=== PATIENT | male | born 1980 | race Caucasian/White ===

== ENCOUNTER 2016-08-16 15:57 | Emergency (ER) | payer MEDICAID ==
[~2016-08-16] VITALS: Ht 172.7 cm; Wt 108.9 kg
[~2016-08-16 15:57] MED LIST: ALBUTEROL SULF8.5 GM INH; CIPROFLOXACIN500 M2 ORAL; METRONIDAZOLE500 MG ORAL; NORCO 10/3251 EA ORAL
[2016-08-16 16:15] VITALS: BP 154/95
[2016-08-16] MEDS ORDERED: LORazepam 1mg tab ORAL ONE (17:00)
[2016-08-16] MEDS ORDERED: LIBRIUM25 MG ORAL (17:31)
[2016-08-16] MEDS ORDERED: ZOFRAN4 M3 ORAL (17:34)
[2016-08-16 17:39] VITALS: BP 164/100
--- NOTE | 2016-08-16 22:05 | Emergency Room Report ---
History of Present Illness General Chief Complaint: General Complaint Source: Patient Present Illness HPI The patient is a 35-year-old male presenting for possible alcohol withdrawal. The patient states that he has been heavily drinking over the past week and states he drinks 1 L of vodka daily but stopped yesterday. The patient states that he is now experiencing tremulous hands and nausea. The pt denies change in consciousness, dizziness, blurred vision, decreased balance, CP, SOB, diaphoresis, abd pain, hematochezia, melena, hematemesis Allergies: Coded Allergies: No Known Allergies (Unverified , 09/14/14) Patient History Past Medical History: see triage record Pertinent Family History: none Social History: Reports: alcohol use Reviewed Nursing Documentation: PMH: Agreed, PSxH: Agreed Nursing Documentation-PMH Hx Asthma: Yes Hx Gastrointestinal Problems: Yes - diverticulities Review of Systems All Other Systems: negative except mentioned in HPI Physical Exam Vital Signs Date Time Temp Pulse Resp B/P Pulse Ox O2 Delivery O2 Flow Rate FiO2 08/16/16 16:01 98.2 89 19 154/95 96 Room Air Sp02 EP Interpretation: reviewed, normal General Appearance: no apparent distress, alert, GCS 15, non-toxic Head: normocephalic, atraumatic Eyes: bilateral eye EOMI, bilateral eye PERRL, bilateral eye normal inspection ENT: hearing grossly normal, normal pharynx, no angioedema, normal voice Neck: full range of motion, supple/symm/no masses Respiratory: chest non-tender, lungs clear, normal breath sounds, no wheezing, speaking full sentences Cardiovascular #1: regular rate, rhythm, no edema, no murmur Gastrointestinal: normal bowel sounds, non tender, soft, non-distended, no guarding, no rebound Musculoskeletal: back normal, gait/station normal, normal range of motion, non- tender Neurologic: alert, oriented x3, responsive, motor strength/tone normal, sensory intact, normal gait, speech normal, other - slight tremor of bilat hands Psychiatric: judgement/insight normal, memory normal, mood/affect normal, no suicidal/homicidal ideation Reflexes: 3+ bicep (R), 3+ bicep (L), 3+ tricep (R), 3+ tricep (L), 3+ knee (R) , 3+ knee (L) Skin: normal color, no rash, warm/dry, well hydrated Lymphatic: no adenopathy Medical Decision Making PA Attestation Dr. Alfaro is my supervising physician. Patient management was discussed with my supervising physician Diagnostic Impression: Primary Impression: Alcohol use disorder ER Course The patient is a 35-year-old male presenting for possible alcohol withdrawal. DDx considered but not limited to: alcohol withdrawal, acute alcohol intoxication, hepatic encephalopathy, drug overdose, hypoglycemia, psychosis PE: afebrile. NAD. A&Ox3. PERRL. CN II-XII intact. Slight tremor of hands. Normal gait. RRR. No MRG. Lungs CTA bilat. Abd soft, non tender. The patient was given Ativan and Zofran and states that he is feeling better. Hand tremors have decreased. The patient will be discharged home with a prescription for Zofran and Librium. The patient will followup with primary care physician and is given information regarding cessation of drinking alcohol. ER precautions are given. Last Vital Signs Date Time Temp Pulse Resp B/P Pulse Ox O2 Delivery O2 Flow Rate FiO2 08/16/16 17:39 92 20 164/100 95 Room Air 08/16/16 16:15 98.2 Status: improved Disposition: HOME, SELF-CARE Condition: Improved Scripts Ondansetron* (ZOFRAN*) 4 Mg Tablet 4 MG ORAL Q6H Y for Nausea & Vomiting, #20 TAB Prov: ZONIA WILLIAMSON 08/16/16 Chlordiazepoxide (Chlordiazepoxide HCl) 25 Mg Capsule 50 MG ORAL Q6HR, #40 CAP 0 Refills Prov: ZONIA WILLIAMSON.Matilda 08/16/16 Patient Instructions: Alcohol Use Disorder, Alcohol Withdrawal Additional Instructions: I discussed my findings with the patient. All questions and concerns have been answered. Treatment and medication compliance have been addressed. I advised the patient that they need to follow up with PMD in 3-5 days. Return to ED if symptoms worsen, new symptoms arise, or if needed for any reason. Patient verbalized understanding of discharge instructions. Follow up with primary doctor as soon as possible. Patient agrees he will refrain from drinking alcohol. ZONIA WILLIAMSON Aug 16, 2016 22:05
== END 2016-08-16 17:41 | disposition home or self-care (01) ==
LOC: EMR 16:21
DX: F10.10 Alcohol abuse, uncomplicated (principal); J45.909 Unspecified asthma, uncomplicated; Z87.19 Personal history of other diseases of the digestive system
CPT/HCPCS: 99282

== ENCOUNTER 2016-10-22 15:53 | Emergency (ER) | payer MEDICAID ==
[~2016-10-22] VITALS: Ht 175.3 cm; Wt 104.3 kg
[~2016-10-22 15:53] MED LIST changes: +LIBRIUM25 MG ORAL; +ZOFRAN4 M3 ORAL
[2016-10-22] MEDS ORDERED: CHLORDIAZEPOXID25 MG PO (16:14)
[2016-10-22] MEDS ORDERED: LORazepam 1mg tab ORAL ONE (17:30)
[2016-10-22 17:57] VITALS: BP 162/90
[2016-10-22] MEDS ORDERED: ATIVAN0.5 MG ORAL (18:16)
[2016-10-22] MEDS ORDERED: PROAIR HFA8.5 GM INH (18:17)
[2016-10-22 18:24] VITALS: BP 162/71
--- NOTE | 2016-10-22 22:25 | Emergency Room Report ---
History of Present Illness General Chief Complaint: General Complaint Source: Patient Present Illness HPI The patient is a 36 from male presenting for possible alcohol withdrawal. The patient states that he stopped drinking tequila 3 days prior and has developed tremors.The patient states that he has gone to alcohol is drawn the past and this feels the same. he also admits to nausea but denies vomiting. The patient denies other symptoms including headache, shortness of breath, chest pain, dizziness, blurred vision, altered level of consciousness, fever, chills Allergies: Coded Allergies: No Known Allergies (Unverified , 09/14/14) Patient History Past Medical History: see triage record Pertinent Family History: none Social History: Reports: alcohol use Reviewed Nursing Documentation: PMH: Agreed, PSxH: Agreed Nursing Documentation-PMH Hx Asthma: Yes Hx Gastrointestinal Problems: Yes - diverticulities Review of Systems All Other Systems: negative except mentioned in HPI Physical Exam Vital Signs Date Time Temp Pulse Resp B/P Pulse Ox O2 Delivery O2 Flow Rate FiO2 10/22/16 16:07 97.9 100 20 162/90 95 Room Air Sp02 EP Interpretation: reviewed, normal General Appearance: no apparent distress, alert, GCS 15, non-toxic Head: normocephalic, atraumatic Eyes: bilateral eye EOMI, bilateral eye PERRL, bilateral eye normal inspection ENT: hearing grossly normal, normal pharynx, no angioedema, normal voice Respiratory: chest non-tender, lungs clear, normal breath sounds, no wheezing, speaking full sentences Cardiovascular #1: regular rate, rhythm, no edema Genitourinary: normal inspection, no CVA tenderness Musculoskeletal: back normal, gait/station normal, normal range of motion Neurologic: alert, oriented x3, responsive, motor strength/tone normal, sensory intact, normal gait, speech normal, other - tremor of bilat hands Psychiatric: judgement/insight normal, memory normal, mood/affect normal, no suicidal/homicidal ideation Skin: normal color, no rash, warm/dry, well hydrated Lymphatic: no adenopathy Medical Decision Making PA Attestation Dr. Alfaro is my supervising physician. Patient management was discussed with my supervising physician Diagnostic Impression: Primary Impression: Alcohol use disorder ER Course The patient is a 36 from male presenting for possible alcohol withdrawal DDx considered but not limited to: alcohol intoxication, hepatic encephalopathy , drug overdose, psychosis, alcohol withdrawal PE: tachycardia and HTN A&Ox3 HEENT: PERRL. Abd is soft and non tender. Neuro: Minor tremor is noted of bilat upper extremities Skin: diaphoretic. No rash The pt is also asking for refill of albuterol for his asthma. Last Vital Signs Date Time Temp Pulse Resp B/P Pulse Ox O2 Delivery O2 Flow Rate FiO2 10/22/16 18:24 102 17 162/71 98 Room Air 10/22/16 16:07 97.9 Status: improved Disposition: HOME, SELF-CARE Condition: Improved Scripts Albuterol Sulfate* (PROAIR HFA*) 8.5 Gm Hfa.aer.ad 2 PUFFS INH Q6H, #8.5 GM 0 Refills Prov: ZONIA WILLIAMSON 10/22/16 Lorazepam* (ATIVAN*) 0.5 Mg Tablet 0.5 MG ORAL THREE TIMES A DAY, #15 TAB Prov: ZONIA WILLIAMSON 10/22/16 Referrals: NON PHYSICIAN (PCP) Patient Instructions: Alcohol Use Disorder, Alcohol Withdrawal Additional Instructions: I discussed my findings with the patient. All questions and concerns have been answered. Treatment and medication compliance have been addressed. I advised the patient that they need to follow up with PMD in 3-5 days. Return to ED if symptoms worsen, new symptoms arise, or if needed for any reason. Patient verbalized understanding of discharge instructions. The patient is advised he needs to seek care for alcohol addicition ZONIA WILLIAMSON Oct 22, 2016 22:25
== END 2016-10-22 18:50 | disposition home or self-care (01) ==
LOC: EMR 18:46
DX: F10.10 Alcohol abuse, uncomplicated (principal); R11.0 Nausea; J45.909 Unspecified asthma, uncomplicated; I10 Essential (primary) hypertension; R00.0 Tachycardia, unspecified
CPT/HCPCS: 99284

== ENCOUNTER 2018-02-16 13:50 | Emergency (ER) | payer MEDICAID ==
[~2018-02-16] VITALS: Ht 175.3 cm; Wt 104.3 kg
[~2018-02-16 13:50] MED LIST changes: +ATIVAN0.5 MG ORAL; +CHLORDIAZEPOXID25 MG PO; +PROAIR HFA8.5 GM INH
[2018-02-16 14:17] VITALS: BP 141/77
[2018-02-16] MEDS ORDERED: Sodium Chloride 500ML 500 ML IV ONE (14:21)
--- NOTE | 2018-02-16 14:42 | Emergency Room Report ---
History of Present Illness General Chief Complaint: Vomiting Source: Patient Present Illness HPI Patient is a 37-year-old male who is presenting with nausea vomiting, weakness, near syncope after 5 days of significant alcohol intake. Patient states "I was partying for the last 5 days". He denies any drug use other than medical marijuana. Allergies: Coded Allergies: No Known Allergies (Unverified , 09/14/14) Patient History Past Medical History: other - Diverticulitis, asthma Past Surgical History: none Pertinent Family History: none Social History: Reports: alcohol use, drug use Nursing Documentation-PMH Hx Asthma: Yes Hx Gastrointestinal Problems: Yes - diverticulities Review of Systems Constitutional: Reports: weakness; Denies: no symptoms, see HPI, chills, sweats , fever, malaise, other Eye: Denies: no symptoms, see HPI, eye pain, blurred vision, tearing, double vision, nose pain, nose congestion, acuity changes, discharge, other ENT: Denies: no symptoms, see HPI, ear pain, ear discharge, nose pain, nose congestion, throat pain, throat swelling, mouth pain, hearing loss, nasal discharge, other Respiratory: Denies: no symptoms, see HPI, cough, orthopnea, shortness of breath, stridor, wheezing, SPIVEY, sputum, other Cardiovascular: Denies: no symptoms, see HPI, chest pain, edema, palpitations, syncope, PND, other Gastrointestinal: Reports: nausea, vomiting; Denies: no symptoms, see HPI, abdominal pain, constipation, diarrhea, melena, hematemesis, other Musculoskeletal: Denies: no symptoms, see HPI, back pain, gout, joint pain, joint swelling, muscle pain, muscle stiffness, other Skin: Denies: no symptoms, see HPI, rash, change in color, change in hair/nails , dryness, lesions, other Neurological: Denies: no symptoms, see HPI, headache, numbness, paresthesia, seizure, tingling, tremors, focal weakness, syncope, dizziness, other Endocrine: Denies: no symptoms, see HPI, excessive sweating, flushing, intolerance to temperature, increased thirst, increased urine, unexplained weight loss, other Hematologic/Lymphatic: Denies: no symptoms, see HPI, anemia, blood clots, easy bleeding, easy bruising, swollen glands, diathesis, other Physical Exam Vital Signs Date Time Temp Pulse Resp B/P (MAP) Pulse Ox O2 Delivery O2 Flow Rate FiO2 02/16/18 13:53 97.1 66 16 140/87 95 Room Air 97.2 Sp02 EP Interpretation: reviewed, normal General Appearance: no apparent distress, alert, GCS 15, non-toxic Head: normocephalic, atraumatic Eyes: bilateral eye normal inspection, bilateral eye PERRL ENT: hearing grossly normal, normal pharynx, no angioedema, normal voice Neck: full range of motion, supple/symm/no masses Respiratory: chest non-tender, lungs clear, normal breath sounds, speaking full sentences Cardiovascular #1: regular rate, rhythm, no edema Cardiovascular #2: 2+ carotid (R), 2+ carotid (L), 2+ radial (R), 2+ radial (L) , 2+ dorsalis pedis (R), 2+ dorsalis pedis (L) Gastrointestinal: normal bowel sounds, non tender, soft, non-distended, no guarding, no rebound Rectal: deferred Genitourinary: normal inspection, no CVA tenderness Musculoskeletal: back normal, gait/station normal, normal range of motion, non- tender, calf tenderness Neurologic: alert, oriented x3, responsive, motor strength/tone normal, sensory intact, speech normal Psychiatric: judgement/insight normal, memory normal, mood/affect normal, no suicidal/homicidal ideation Reflexes: 3+ bicep (R), 3+ bicep (L), 3+ tricep (R), 3+ tricep (L), 3+ knee (R) , 3+ knee (L) Skin: normal color, no rash, warm/dry, well hydrated Lymphatic: no adenopathy Medical Decision Making Diagnostic Impression: Primary Impression: Vomiting Qualified Codes: R11.2 - Nausea with vomiting, unspecified Additional Impression: Alcohol use disorder ER Course Patient is a 37-year-old male with a history of significant alcohol use who presents with vomiting and dehydration. Patient is improved after Zofran and IV fluids in the department. Laboratory studies are unremarkable. EKG is unremarkable. Patient will be sent home to follow with his primary care physician as needed. He has been instructed to avoid the use of alcohol as much as possible. Laboratory Tests Test 02/16/18 14:25 White Blood Count 10.1 K/UL (4.8-10.8) Red Blood Count 5.17 M/UL (4.70-6.10) Hemoglobin 15.9 G/DL (14.2-18.0) Hematocrit 48.3 % (42.0-52.0) Mean Corpuscular Volume 93 FL (80-99) Mean Corpuscular Hemoglobin 30.8 PG (27.0-31.0) Mean Corpuscular Hemoglobin Concent 33.0 G/DL (32.0-36.0) Red Cell Distribution Width 11.5 % (11.6-14.8) L Platelet Count 316 K/UL (150-450) Mean Platelet Volume 7.4 FL (6.5-10.1) Neutrophils (%) (Auto) 82.6 % (45.0-75.0) H Lymphocytes (%) (Auto) 12.8 % (20.0-45.0) L Monocytes (%) (Auto) 3.5 % (1.0-10.0) Eosinophils (%) (Auto) 0.2 % (0.0-3.0) Basophils (%) (Auto) 0.9 % (0.0-2.0) Sodium Level 142 MMOL/L (136-145) Potassium Level 3.4 MMOL/L (3.5-5.1) L Chloride Level 104 MMOL/L (98-107) Carbon Dioxide Level 30 MMOL/L (21-32) Anion Gap 8 mmol/L (5-15) Blood Urea Nitrogen 8 mg/dL (7-18) Creatinine 0.8 MG/DL (0.55-1.30) Estimate Glomerular Filtration Rate > 60 mL/min (>60) Glucose Level 148 MG/DL (74-106) H Calcium Level 9.3 MG/DL (8.5-10.1) Total Bilirubin 0.9 MG/DL (0.2-1.0) Aspartate Amino Transferase (AST) 64 U/L (15-37) H Alanine Aminotransferase (ALT) 101 U/L (12-78) H Alkaline Phosphatase 107 U/L (46-116) Total Protein 8.8 G/DL (6.4-8.2) H Albumin 4.5 G/DL (3.4-5.0) Globulin 4.3 g/dL Albumin/Globulin Ratio 1.0 (1.0-2.7) Lipase 162 U/L (73-393) EKG Diagnostic Results EP Interpretation: EKG at 1440- sinus rhythm, rate 57, normal axis, no acute ST or T-wave abno Last Vital Signs Date Time Temp Pulse Resp B/P (MAP) Pulse Ox O2 Delivery O2 Flow Rate FiO2 02/16/18 14:17 97.7 60 20 141/77 98 Room Air 97.7 Status: improved Disposition: HOME, SELF-CARE Condition: Improved Scripts Ondansetron (Zofran) 4 Mg Tablet 4 MG ORAL Q6H PRN for Nausea & Vomiting, #30 TAB 0 Refills Prov: Angel Fuentes MD 02/16/18 Patient Instructions: Nausea and Vomiting, Adult Angel Fuentes MD Feb 16, 2018 14:42
[2018-02-16 14:45] LABS: BASOPHILS % (AUTO) 0.9 % (0.0-2.0); EOSINOPHILS % (AUTO) 0.2 % (0.0-3.0); HEMATOCRIT 48.3 % (42.0-52.0); HEMOGLOBIN 15.9 G/DL (14.2-18.0); LYMPHOCYTES % (AUTO) 12.8 % (20.0-45.0); MEAN CORPUSCULAR VOLUME 93 FL (80-99); MONOCYTES % (AUTO) 3.5 % (1.0-10.0); NEUTROPHILS % (AUTO) 82.6 % (45.0-75.0); PLATELET COUNT 316 K/UL (150-450); RED BLOOD COUNT 5.17 M/UL (4.70-6.10); RED CELL DISTRIBUTION WIDTH 11.5 % (11.6-14.8); WHITE BLOOD COUNT 10.1 K/UL (4.8-10.8)
[2018-02-16 15:01] LABS: ANION GAP 8 mmol/L (5-15); BLOOD UREA NITROGEN 8 mg/dL (7-18); CALCIUM 9.3 MG/DL (8.5-10.1); CARBON DIOXIDE 30 MMOL/L (21-32); CHLORIDE 104 MMOL/L (98-107); CREATININE 0.8 MG/DL (0.55-1.30); POTASSIUM 3.4 MMOL/L (3.5-5.1); SODIUM 142 MMOL/L (136-145)
[2018-02-16 15:06] LABS: ALANINE AMINOTRANSFERASE 101 U/L (12-78); ALBUMIN 4.5 G/DL (3.4-5.0); ALKALINE PHOSPHATASE 107 U/L (46-116); ASPARTATE AMINO TRANSFERASE 64 U/L (15-37); BILIRUBIN,TOTAL 0.9 MG/DL (0.2-1.0)
[2018-02-16] MEDS ORDERED: ZOFRAN4 MG ORAL (15:35)
[2018-02-16 15:42] VITALS: BP_SYST 126; BP_SYST 141; BP_DIAS 77; BP_DIAS 87
--- NOTE | 2018-02-21 16:31 | Cardiology Report ---
APPROVED REPORT EKG Measurement Heart [id number] MD [id number] Sinus bradycardia with sinus arrhythmia Otherwise normal ECG
== END 2018-02-16 15:42 | disposition home or self-care (01) ==
LOC: EMR 14:45
DX: R11.2 Nausea with vomiting, unspecified (principal); F10.10 Alcohol abuse, uncomplicated
CPT/HCPCS: 36415; 80053; 83690; 85025; 93005; 99283; J2405